=== PATIENT | male | born 1995 | race Caucasian/White ===

== ENCOUNTER 2018-05-19 12:19 | Emergency (ER) | payer BC, SELFPAY ==
[2018-05-19] VITALS (10 sets, daily range): BP systolic 131–148; BP diastolic 67–73; PULSE 70–93; RESP 16–23; TEMP 36.6; O2SAT 100
--- NOTE | 2018-05-19 12:40 | ED.GENADUL_ITS ---
Discharge Plan Disposition Patient Disposition: HOME Condition: Good Discharge Details Chief Complaint: Chest Pain Clinical Impression: Chest pain, Microcytic anemia ED Provider: Raoul Jensen Home Meds and New Rx's Prescriptions: No Action No Known Home Meds RF: 0 Discharge Instructions Instructions: Chest Pain (ED), Anemia (ED) Additional Instructions: your lab work showed a mild anemia, likely from iron deficiency, you can try taking over the counter supplements follow up with your primary care and have your blood count repeated within a month if you have severe worsening pain or difficulty breathing return to the emergency department Medical Decision Making 23 yo male who denies smoking hx or significant pmhx comes in with chief complaint of intermittent chest pain and dry cough for about a week. States no pain with exertion and actually feels better with exertion. Has pain with palpation to the left anterior chest. Doubt acs, heart score is 0, will evaluate with troponin. Wells low and perc negative so doubt PE. No tearing back pain and normal vascular exam so doubt dissection. Clera lung sounds, speaking in full sentences, no fevers so doubt ptx or pna at this time pt in no disress, speaking in full sentences, laughing and no pain now. HD stable. Labs show mild microcyctic anemia, advised have this repeated with pcp in a month or so and return if worsening. No emergent lab abnormalities Differential Diagnosis pericarditis, muscuolskeletal chest pain, acs Imaging Data Radiologic Study: Attestation: I personally reviewed and interpreted this imaging study as follows: Imaging: X-Ray My impression: no acute findings Lab Data Lab results reviewed: Yes I reviewed the patient's lab results. ECG Data Attestation: I personally reviewed and interpreted this ECG (s) as follows: Prior ECG tracings: not available for review Interpretation: sinus rhythm, rate of 72, pr 124, no acute st t wave ischemic findings HPI General Mode of arrival: ambulatory . Date/Time Provider Initiated Documentation: 05/19/18 12:34 . Limitations to Documentation: no limitations . Information obtained by: patient . History of Present Illness 23 year old M presents to the emergency department with the chief complaint of chest pain, described as mild, with intensity rated at 3. Quality is described as aching, and is localized to the chest. Patient reports no radiation. Patient started experiencing this week(s) (1) and it has been intermittent. Movement improves symptom(s), Rest worsens symptoms . Patient notes no other symptoms.. Patient did receive the following treatments prior to arrival, none Related Data Home Medications Medication Instructions Recorded Confirmed Unknown [No Known Home Meds] 05/19/18 05/19/18 Allergies Allergy/AdvReac Type Severity Reaction Status Date / Time Penicillins Allergy Intermediate Skin Rash Unverified 05/19/18 12:51 Review of Systems Review of Systems All systems reviewed & are unremarkable except as noted in HPI and below Constitutional Denies chills, Denies fever(s) and Denies weakness Eyes Denies loss of vision ENT Denies change in voice Cardiovascular Denies dyspnea Respiratory Denies dyspnea Gastrointestinal Denies abdominal pain, Denies nausea and Denies vomiting Genitourinary Denies dysuria Musculoskeletal Denies joint swelling Integumentary/Breasts Denies rash Neurologic Denies loss of vision and Denies weakness Psychiatric Denies depression Endocrine Denies cold intolerance and Denies heat intolerance Allergic/Immunologic Denies urticaria PFSH Social History Smoking/Tobacco Use Status: Never Social History Smoking/Tobacco Use Status: Never Exam Const General: no acute distress Orientation: alert HENMT Head: normal to inspection Ears: external ears normal General nose exam: external nose normal Mouth: moist mucous membranes Eyes General: appearance normal, both eyes and all related structures Neck Neck: normal visual inspection Resp Effort & Inspection: normal respiratory effort and able to speak in complete sentences Cardio Rate: regular rate Skin General skin exam: no rashes or lesions noted Neuro General: alert and oriented x3 Extrem General: normal to inspection Psych Mental Status: mental status grossly normal
[2018-05-19 12:49] LABS: Abs Immature Grans 0.02 k/cumm (0.0-0.09); Absolute Basophil Count 0.02 k/cumm (0.0-0.2); Absolute Eosinophil Count 0.03 k/cumm (0.0-0.7); Absolute Monocyte Count 0.79 k/cumm (0.11-0.7); Absolute Neutrophil Count 5.07 k/cumm (1.2-6.7); Basophils % 0.3; Eosinophils % 0.4; HCT 38.4 % (40.0-50.0); Immature Grans % 0.3; Lymphocytes % 23.3; Mean Corp. HGB Concentration 31.3 g/dL (32.0-36.0); Mean Corpuscular Hemoglobin 22.6 pg (27.0-33.0); Mean Platelet Volume 9.1 fL (8.0-11.0); Monocytes % 10.2; Neutrophils % 65.5; Platelet Count 376 x1000/uL (130-400); RBC 5.32 m/cumm (4.50-6.00); RBC Distribution Width 15.9 % (11.8-14.1); White Blood Cell Count 7.73 k/cumm (4.4-10.8)
--- NOTE | 2018-05-19 12:50 | DI.RAD_ITS ---
SYMPTOM/DIAGNOSIS: CHEST PAIN PA AND LATERAL CHEST: There are no prior comparison exams. The cardiac and mediastinal contours have a normal appearance. The lungs are well inflated and clear. No infiltrate, effusion or pneumothorax is seen. No bony abnormalities are identified. IMPRESSION: Negative chest xray.
[2018-05-19 13:09] LABS: ALT 43 U/L (12-78); AST 25 U/L (15-37); Albumin 4.5 g/dL (3.4-5.0); Alkaline Phosphatase 88 U/L (46-116); Anion Gap 10.9 mmol/L (3-11); BUN 12 mg/dL (7-18); Bilirubin, Total 0.3 mg/dL (0.2-1.0); CO2 26.1 mmol/L (21.0-32.0); CREATININE 0.99 mg/dL (0.70-1.30); Chloride 102 mmol/L (98-107); Glucose 96 mg/dL (70-100); Sodium 139 mmol/L (136-145); Total Protein 7.9 g/dL (6.4-8.2)
[2018-05-19 13:11] LABS: Diff Comment RBC Morph Reviewed; Hypochromasia 2+; Microcytosis 3+; Ovalocytes 2+
[2018-05-19 13:12] LABS: Mean Corpuscular Volume 72.2 fL (80-95)
[2018-05-19 13:18] LABS: Troponin I < 0.02 ng/mL (0.00-0.06)
== END 2018-05-19 13:33 | disposition home or self-care (01) ==
LOC: ER 13:46
PROVIDERS: Emergency Provider Emergency Medicine
DX: D50.9 Iron deficiency anemia, unspecified (principal); R07.9 Chest pain, unspecified; R05 Cough
CPT/HCPCS: 36415; 80053; 93005; 99285; 71046; 84484; 85025; 93010; 99284